=== PATIENT | male | born 1970 | race Caucasian/White ===

== ENCOUNTER 2021-03-27 18:33 | Emergency (ER) | payer SELFPAY ==
[~2021-03-27] VITALS: Ht 172.7 cm; Wt 108.9 kg
[2021-03-27 18:37] VITALS: BP 148/72
--- NOTE | 2021-03-27 19:25 | NUR ---
SEEN AND EXAMINED BY DOMINIC.
[2021-03-27] MEDS ORDERED: ATA25 PO (19:42)
[2021-03-27 19:55] VITALS: BP 148/72
== END 2021-03-27 19:55 | disposition home or self-care (01) ==
LOC: MED 18:33
DX: L40.9 Psoriasis, unspecified (principal); L29.9 Pruritus, unspecified; F10.129 Alcohol abuse with intoxication, unspecified; Z79.899 Other long term (current) drug therapy
CPT/HCPCS: 99283

== ENCOUNTER 2021-10-14 18:10 | Emergency (ER) | payer SELFPAY ==
[~2021-10-14] VITALS: Ht 172.7 cm; Wt 86.2 kg
[~2021-10-14 18:10] MED LIST: ATA25 PO
[2021-10-14 18:11] VITALS: BP 132/70
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
--- NOTE | 2021-10-14 20:14 | NUR ---
called first time, no show in lobby.
--- NOTE | 2021-10-14 21:05 | NUR ---
Called second time- no show in Lobby.
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
== END 2021-10-14 21:31 | disposition left against medical advice (07) ==
LOC: MED 18:10
DX: S19.9XXA Unspecified injury of neck, initial encounter (principal); F10.129 Alcohol abuse with intoxication, unspecified; Z88.6 Allergy status to analgesic agent; Z79.899 Other long term (current) drug therapy; Y04.2XXA Assault by strike against or bumped into by another person, initial encounter; Y93.89 Activity, other specified; Y92.512 Supermarket, store or market as the place of occurrence of the external cause; Y99.8 Other external cause status
CPT/HCPCS: 70450; 72125; 99284